=== PATIENT | female | born 1940 | race Caucasian/White ===

== ENCOUNTER 2016-08-03 16:49 | Outpatient (CLI) | payer MEDICARE | END 2016-08-03 16:50 | disposition home or self-care (01) | DX: R19.7 Diarrhea, unspecified (principal) ==

== ENCOUNTER 2016-08-09 10:24 | Outpatient (CLI) | payer MEDICARE | END 2016-08-09 10:25 | disposition home or self-care (01) | DX: E78.5 Hyperlipidemia, unspecified (principal); I10 Essential (primary) hypertension ==

== ENCOUNTER 2016-12-24 17:10 | Emergency (ER) | payer MEDICARE ==
[2016-12-24 17:22] VITALS: BP 134/72
--- NOTE | 2016-12-24 17:56 | ED Physician Documentation ---
PD HPI Fall - Stated complaint Stated Complaint: GLF/R ELBOW/KNEE LACS - Chief complaint Chief Complaint: Ext Problem - History obtained from History obtained from: Patient, Family - History of Present Illness Mechanism of injury: Tripped Fall distance: Standing position Where injury occurred: Home Timing - onset: Today Injury(ies) location: Right Upper Extremity, Right Lower Extremity Quality of pain: Pain Associated symptoms: No: LOC, AMS, Amnesia, Seizures, Ear drainage, Nasal drainage, Neck pain, Weakness, Paresthesias, Dyspnea, Nausea / vomiting, Hematemesis, Abdominal distension Symptoms improve with: Rest Worsens with: Movement Similar symptoms before: Has not had sx before Recently seen: Not recently seen - Additional information Additional information: 76-year-old female tripped over a basket in her bathroom today at about 1 PM. She has an abrasion to her right knee and her right elbow. She did not have loss of consciousness with this she is able to bear weight without difficulty she does have some torn skin on her knee and there is a piece of skin that is missing on her elbow. She has some thin skin with flaps. She was able to clean the area with some hydrogen peroxide prior to coming to the emergency department. Review of Systems Constitutional: denies: Fever Ears: denies: Ear pain Nose: denies: Congestion Throat: denies: Sore throat Respiratory: denies: Cough GI: denies: Vomiting : denies: Dysuria Skin: reports: Laceration (s). denies: Rash Musculoskeletal: reports: Extremity pain. denies: Neck pain, Back pain, Pain with weight bearing Neurologic: denies: Generalized weakness, Focal weakness, Numbness PD PAST MEDICAL HISTORY - Past Medical History Past Medical History: Yes Cardiovascular: Hypertension Other Past Medical History: colitis celic disease - Past Surgical History Past Surgical History: Yes Ortho: Hip replacement - Present Medications Home Medications: Ambulatory Orders Medication Instructions Recorded Confirmed Atorvastatin [Lipitor] 10 mg PO DAILY 12/24/16 12/24/16 DULoxetine [Cymbalta] 30 mg PO DAILY 12/24/16 12/24/16 Hydrochlorothiazide 25 mg PO DAILY 12/24/16 12/24/16 Ropinirole HCl [Ropinirole ER] 4 mg PO DAILY 12/24/16 12/24/16 buPROPion [Wellbutrin Sr] 150 mg PO DAILY 12/24/16 12/24/16 - Allergies Allergies/Adverse Reactions: Allergies Allergy/AdvReac Type Severity Reaction Status Date / Time acetaminophen [From Vicodin] AdvReac Unknown Verified 12/24/16 17:23 hydrocodone bitartrate * AdvReac talkative Verified 12/24/16 17:27 [From Vicodin] oxycodone AdvReac nightmares Verified 12/24/16 17:27 prednisone AdvReac no verbal Verified 12/24/16 17:27 control - Social History Does the pt smoke?: No Smoking Status: Never smoker Does the pt drink ETOH?: Yes ETOH Use: Wine Does the pt have substance abuse?: No - Immunizations Immunizations are current?: Yes - POLST Patient has POLST: No PD ED PE NORMAL - Vitals Vital signs reviewed: Yes (Mild hypertension) - General General: No acute distress, Well developed/nourished - HEENT HEENT: Atraumatic, PERRL - Respiratory Respiratory: No respiratory distress - Derm Derm: Normal color, Warm and dry, No rash - Extremities Extremities: Other (There is a skin tear to the right elbow over the lateral epicondyles. There is a portion of skin missing and a split thickness. There is no involvement of deeper structures in the distal neurovascular components are intact. Examination of the right knee reveals a flap laceration that is superficial and there is no evidence of foreign material in the wound. Distal neurovascular components are intact she is able to flex and extend her knee without difficulty and has no joint effusion evident.) - Neuro Neuro: No motor deficit, No sensory deficit - Psych Psych: Normal mood, Normal affect Results - Vitals Vitals: Vital Signs - 24 hr 12/24/16 17:19 Temperature 36.4 C L Heart Rate 70 Respiratory 16 Rate Blood Pressure 134/72 H O2 Saturation 95 Oxygen O2 Source Room air Procedures - Laceration (location) Right elbow and knee Length in cm: 4 Wound type: Curved, Flap, Clean Neurovascular status: Sensory intact, Motor intact, Vascular intact Wound Preparation: Irrigated copiously NS, Wound explored, To the base Skin layer closure: Dermabond, Steri strips Other: Patient tolerated well, No complications, Neurovascular intact, Tetanus UTD Complexity: Simple PD MEDICAL DECISION MAKING - ED course Complexity details: reviewed results, re-evaluated patient, considered differential, d/w patient, d/w family ED course: 76-year-old female with thin skin flaps from a fall has the wounds cleaned and tissue reapproximated with the use of tincture of benzoin and Steri-Strips covered by Dermabond. Departure - Departure Disposition: 01 Home, Self Care Clinical Impression: Skin tear of elbow without complication Qualifiers: Encounter type: initial encounter Laterality: right Qualified Code(s): S51.011A - Laceration without foreign body of right elbow, initial encounter Skin tear of right lower leg without complication Qualifiers: Encounter type: initial encounter Qualified Code(s): S81.811A - Laceration without foreign body, right lower leg, initial encounter Condition: Stable Instructions: ED Laceration Ext Skin Glue Follow-Up: Gagandeep Lui MD [Primary Care Provider] -
== END 2016-12-24 18:06 | disposition home or self-care (01) ==
LOC: ED 17:10
DX: S51.011A Laceration without foreign body of right elbow, initial encounter (principal); S81.011A Laceration without foreign body, right knee, initial encounter; W01.0XXA Fall on same level from slipping, tripping and stumbling without subsequent striking against object, initial encounter; Y92.012 Bathroom of single-family (private) house as the place of occurrence of the external cause; I10 Essential (primary) hypertension; K90.0 Celiac disease
CPT/HCPCS: 12002; 99283

== ENCOUNTER 2020-12-16 11:50 | Emergency (ER) | payer MEDICARE ==
[2020-12-16 12:07] VITALS: BP 139/54
[2020-12-16] MEDS ORDERED: BACITRACIN ZINC OINT 1 PACKET TOP STA (13:03)
[2020-12-16] MEDS ORDERED: TETANUS/DIPHTHERIA/PERTUSSIS 0.5 ML SYRINGE IM ONE (13:03)
[2020-12-16] MEDS ORDERED: BACITRACIN ZINC OINT 1 PACKET TOP ONE (13:09)
--- NOTE | 2020-12-16 13:13 | ED Physician Documentation ---
History of Present Illness - Stated complaint Stated Complaint: R LEG LAC - Chief complaint Chief Complaint: Laceration - Additonal information Additional information: 80-year-old female presents emergency department for evaluation of a right leg avulsion/laceration sustained more than 24 hours ago when her leg got caught in the car door. She sustained a very shallow but wide avulsion skin injury. She cleansed it at home but presents today wondering if it should be closed primarily. She does not know the date of her last tetanus. Review of Systems Constitutional: reports: Reviewed and negative Eyes: reports: Reviewed and negative Ears: reports: Reviewed and negative Throat: reports: Reviewed and negative Respiratory: reports: Reviewed and negative : reports: Reviewed and negative Skin: reports: Laceration (s) PD PAST MEDICAL HISTORY - Past Medical History Cardiovascular: Hypertension - Past Surgical History Past Surgical History: Yes Ortho: Hip replacement - Present Medications Home Medications: Ambulatory Orders Medication Instructions Recorded Confirmed Atorvastatin [Lipitor] 10 mg PO DAILY 12/24/16 12/16/20 buPROPion [Wellbutrin Sr] 300 mg PO DAILY 12/24/16 12/16/20 hydroCHLOROthiazide 25 mg PO DAILY 12/24/16 12/16/20 [Hydrochlorothiazide] Atenolol [Tenormin] 50 mg PO DAILY 12/16/20 12/16/20 Gabapentin [Neurontin] 900 mg PO HS 12/16/20 12/16/20 amLODIPine [Norvasc] 5 mg PO DAILY 12/16/20 12/16/20 - Allergies Allergies/Adverse Reactions: Allergies Allergy/AdvReac Type Severity Reaction Status Date / Time acetaminophen [From Vicodin] AdvReac Unknown Verified 12/16/20 12:04 hydrocodone bitartrate * AdvReac talkative Verified 12/16/20 12:04 [From Vicodin] oxycodone AdvReac nightmares Verified 12/16/20 12:04 prednisone AdvReac no verbal Verified 12/16/20 12:04 control - Social History Does the pt smoke?: No Smoking Status: Never smoker Does the pt drink ETOH?: Yes Does the pt have substance abuse?: No - Immunizations Immunizations are current?: Yes - POLST Patient has POLST: No PD ED PE NORMAL - General General: Alert and oriented X 3, No acute distress - HEENT HEENT: PERRL - Cardiac Cardiac: RRR, No murmur - Extremities Extremities: No deformity, No tenderness to palpate, Other (2 x 3 cm skin avulsion right lower anterior leg. Though shallow it does extend to the subcutaneous tissue. Skin is quite retracted and not amenable to primary closure. Cleansed thoroughly with warm soap and water bacitracin and nonstick bandage applied) Results - Vitals Vitals: Vital Signs - 24 hr 12/16/20 12:04 Temperature 36.7 C Heart Rate 50 L Respiratory 16 Rate Blood Pressure 139/54 H O2 Saturation 97 Oxygen O2 Source Room air PD MEDICAL DECISION MAKING - ED course Complexity details: d/w patient ED course: 80-year-old female presents with a large right lower leg skin avulsion after hitting her leg with a car door yesterday afternoon. The skin is now quite retracted and not amenable to primary closure. Wound was thoroughly cleansed with warm soap and water bacitracin and nonstick bandage applied. This will have to heal by Secondary intention. Routine wound care was discussed. Tetanus updated today. No signs of infection at this time but emergent return precautions were discussed. Departure - Departure Disposition: 01 Home, Self Care Clinical Impression: Avulsion of skin of lower leg Qualifiers: Encounter type: initial encounter Laterality: right Qualified Code(s): S81.801A - Unspecified open wound, right lower leg, initial encounter Condition: Stable Record reviewed to determine appropriate education?: Yes Comments: Mariya you can shower normally. When in the shower allow warm soap and water to rinse over your wound. Pat dry and apply any antibiotic ointment, simple nonstick bandage and then the Coban. This wound is not something that we can closed by primary intention today. It will have to heal by secondary intention over time. Your tetanus was updated today and is good for the next 7 to 10 years This wound will likely take about 2 weeks to heal. If at any point you develop significant redness, milky drainage high fevers or red streaking or any concerns of infection then please return to the ER for a second look.
== END 2020-12-16 13:24 | disposition home or self-care (01) ==
LOC: ED 11:50
DX: S81.811A Laceration without foreign body, right lower leg, initial encounter (principal); W23.0XXA Caught, crushed, jammed, or pinched between moving objects, initial encounter; I10 Essential (primary) hypertension; Z23 Encounter for immunization
CPT/HCPCS: 90471; 90715; 99282; 99283; A9270

== ENCOUNTER 2020-12-20 08:19 | Emergency (ER) | payer MEDICARE ==
[2020-12-20 08:32] VITALS: BP 136/78
--- NOTE | 2020-12-20 09:15 | ED Physician Documentation ---
PD HPI LOWER EXT INJURY - Stated complaint Stated Complaint: LAC RT LEG - Chief complaint Chief Complaint: Laceration - History obtained from History obtained from: Patient - History of Present Illness PD HPI LOW EXT INJURY LOCATION: Right, Lower leg Type of injury: Blunt / blow Where injury occurred: Home Timing - onset: How many days ago (6) Timing - duration: Days (6) Timing - details: Abrupt onset, Still present Improved by: Rest Worsened by: Moving, Palpating Associated symptoms: Swelling, Discolored. No: Weakness, Numbness Contributing factors: No: Anticoagulated Similar symptoms before: Has not had sx before Recently seen: Emergency Dept - Additional information Additional information: 80-year-old female avulsed skin on the anterior portion of her calf last week and she waited today before coming into the emergency department the wound was too old for closure and she is treating this conservatively. She has noticed some redness that is developed around the margins of the wound and there is tenderness associated with this without drainage. Review of Systems Constitutional: denies: Fever Eyes: denies: Decreased vision Ears: denies: Ear pain Nose: denies: Congestion Respiratory: denies: Cough GI: denies: Vomiting PD PAST MEDICAL HISTORY - Past Medical History Past Medical History: Yes Cardiovascular: Hypertension Respiratory: None Neuro: None Endocrine/Autoimmune: None GI: None FUSE COILER: None : None HEENT: None Psych: None Musculoskeletal: None Derm: None - Past Surgical History Past Surgical History: Yes Ortho: Hip replacement - Present Medications Home Medications: Ambulatory Orders Medication Instructions Recorded Confirmed Atorvastatin [Lipitor] 10 mg PO DAILY 12/24/16 12/16/20 buPROPion [Wellbutrin Sr] 300 mg PO DAILY 12/24/16 12/16/20 hydroCHLOROthiazide 25 mg PO DAILY 12/24/16 12/16/20 [Hydrochlorothiazide] Atenolol [Tenormin] 50 mg PO DAILY 12/16/20 12/16/20 Gabapentin [Neurontin] 900 mg PO HS 12/16/20 12/16/20 amLODIPine [Norvasc] 5 mg PO DAILY 12/16/20 12/16/20 cephALEXin [Keflex] 500 mg PO Q6H #28 cap 12/20/20 - Allergies Allergies/Adverse Reactions: Allergies Allergy/AdvReac Type Severity Reaction Status Date / Time acetaminophen [From Vicodin] AdvReac Unknown Verified 12/20/20 08:32 hydrocodone bitartrate * AdvReac talkative Verified 12/20/20 08:32 [From Vicodin] oxycodone AdvReac nightmares Verified 12/20/20 08:32 prednisone AdvReac no verbal Verified 12/20/20 08:32 control - Social History Does the pt smoke?: No Smoking Status: Never smoker Does the pt drink ETOH?: Yes Does the pt have substance abuse?: No - Immunizations Immunizations are current?: Yes - POLST Patient has POLST: No PD ED PE NORMAL - Vitals Vital signs reviewed: Yes (normal ) - General General: Alert and oriented X 3, No acute distress, Well developed/nourished - HEENT HEENT: Atraumatic, PERRL, EOMI - Respiratory Respiratory: No respiratory distress - Derm Derm: Normal color, Warm and dry, No rash - Extremities Extremities: No deformity, No edema, Other (Over the anterior calf of the right leg about 10 cm below the patella is a 5 cm laceration to the skin which appears to be healing with surrounding erythema without drainage the area is tender and appears to be superficially infected. Erythema extends beyond the margins of the wounds approximately ) - Neuro Neuro: Alert and oriented X 3, gem expert 2-12 intact, No motor deficit, No sensory deficit, Normal speech Eye Opening: Spontaneous Motor: Obeys Commands Verbal: Oriented GCS Score: 15 - Psych Psych: Normal mood, Normal affect Results - Vitals Vitals: Vital Signs - 24 hr 12/20/20 08:28 Temperature 36.9 C Heart Rate 66 Respiratory 15 Rate Blood Pressure 136/78 H O2 Saturation 98 Oxygen O2 Source Room air PD MEDICAL DECISION MAKING - ED course Complexity details: considered differential, d/w patient ED course: 80-year-old female with an anterior calf laceration being treated conservatively has developed superficial infection to the wound. We will place her on some Keflex of asked her to use a warm compress twice per day. I have asked her to return to the emergency department should she have progression of symptoms despite antibiotic. Departure - Departure Disposition: 01 Home, Self Care Clinical Impression: Wound infection Condition: Stable Instructions: ED Wound Check Laceration FU Infec Follow-Up: TOR CANSECO MD [Primary Care Provider] - Prescriptions: cephALEXin [Keflex] 500 mg PO Q6H #28 cap Comments: Today looks like there is infection to this wound on your anterior calf. This area has a very poor blood supply to it and is subject to infection and and slowness to healing. The recommendation is to use a warm compress 2-3 times per day for 10 minutes. Take the antibiotic as prescribed and if you have an increase in the redness or pain return to the emergency department
== END 2020-12-20 09:32 | disposition home or self-care (01) ==
LOC: ED 08:19
DX: S81.811A Laceration without foreign body, right lower leg, initial encounter (principal); L08.9 Local infection of the skin and subcutaneous tissue, unspecified; X58.XXXA Exposure to other specified factors, initial encounter; I10 Essential (primary) hypertension
CPT/HCPCS: 99282; 99284

== ENCOUNTER 2022-06-21 08:00 | Outpatient (CLI) | payer MEDICARE | END 2022-06-21 23:59 | disposition home or self-care (01) | LOC: LAB.S 08:00 | PROVIDERS: ATTEND Physician Assistant Medical | DX: R19.7 Diarrhea, unspecified (principal) | CPT/HCPCS: 87045; 87046; 87427; 87493 ==

== ENCOUNTER 2023-07-27 20:49 | Outpatient (CLI) | payer MEDICARE | END 2023-07-27 23:59 | disposition EMS.NT | LOC: EMS 20:49 | DX: Z03.89 Encounter for observation for other suspected diseases and conditions ruled out (principal) ==

== ENCOUNTER 2023-08-12 14:23 | Outpatient (CLI) | payer MEDICARE ==
--- NOTE | 2023-08-12 17:03 | XRAY Report ---
PROCEDURE: Chest 2V INDICATIONS: WHEEZING TECHNIQUE: 2 views of the chest were acquired. COMPARISON: None. FINDINGS: Surgical changes and devices: None. Lungs and pleura: No pleural effusions or pneumothorax. Lungs are clear. Mediastinum: Mediastinal contours appear normal. Heart size is enlarged. Bones and chest wall: No suspicious bony lesions. Overlying soft tissues appear unremarkable. Kecia earance of old right humeral fracture. IMPRESSION: No acute cardiopulmonary process. Reviewed by: Meron Bartlett MD on 08/12/2023 5:02 PM PDT Approved by: Meron Bartlett MD on 08/12/2023 5:02 PM PDT Station ID: [id number]
== END 2023-08-12 14:24 | disposition home or self-care (01) ==
LOC: DI 14:23
PROVIDERS: ATTEND Nurse Practitioner
DX: R06.2 Wheezing (principal)

== ENCOUNTER 2023-09-13 10:11 | Outpatient (CLI) | payer MEDICARE ==
[2023-09-13 15:57] LABS: CALCIUM 9.5 mg/dL (8.5-10.3); CREATININE 0.8 mg/dL (0.6-1.3); POTASSIUM 3.5 mmol/L (3.5-4.5)
== END 2023-09-13 10:12 | disposition home or self-care (01) ==
LOC: LAB.S 10:11
PROVIDERS: ATTEND Family Medicine
DX: E87.6 Hypokalemia (principal)
CPT/HCPCS: 36415; 80048